=== PATIENT | male | born 2000 | race Caucasian/White ===

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

== ENCOUNTER 2020-09-02 21:44 | Emergency (ER) | payer OTHER ==
[~2020-09-02] VITALS: Ht 172.7 cm; Wt 56.7 kg
[2020-09-02] MEDS ORDERED: IVERMECTIN3 MG PO (22:31)
== END 2020-09-02 22:35 | disposition home or self-care (01) ==
LOC: EMR PED 21:44
DX: B76.9 Hookworm disease, unspecified (principal)